=== PATIENT | born 1980 | race Caucasian/White ===

== ENCOUNTER 2025-03-16 10:15 | Outpatient (CLI) | payer MEDICAID, SELFPAY ==
[2025-03-16 10:55] LABS: Hematocrit 43.6 % (36-47); Hemoglobin 14.40 g/dL (11.27-16.99); Mean Corpuscular HGB Conc 33.0 g/dL (30-55); Mean Corpuscular Hemoglobin 31.8 pg (27-33); Mean Corpuscular Volume 96.2 fl (85-98); Nucleated Red Blood Cells % 0 %; Platelet Count 330 10^3/cmm (157-399); Red Blood Count 4.53 10^6/uL (3.85-5.65); White Blood Count 7.11 10^3/uL (3.29-11.43)
[2025-03-16 11:25] LABS: Alanine Aminotransferase 10 U/L (0-33); Albumin Level 4.3 g/dL (3.5-5.2); Alkaline Phosphatase 91 U/L (35-105); Aspartate Amino Transferase 17 U/L (0-32); Blood Urea Nitrogen 8 mg/dL (6-20); Calcium 9.0 mg/dL (8.5-10.5); Carbon Dioxide 27 mmol/L (22-29); Chloride 102 mmol/L (98-107); Cholesterol 188 mg/dL (0-200); Globulin 3.1 g/dL (1.3-4.6); Glucose 86 mg/dL (65-115); HDL Cholesterol 38 mg/dL (60-100); Osmolality Calculated 288 mOsm/kg (285-295); Sodium 140 mmol/L (136-145); Total Protein 7.4 g/dL (6.6-8.7); Triglycerides 264 mg/dL (0-150)
[2025-03-16 11:26] LABS: Anion Gap 15.1 (5-19); Potassium 4.1 mmol/L (3.5-5.1)
[2025-03-16 11:39] LABS: HIV 1 & 2 Antigen Non-Reactive (Non-Reactiv); Hepatitis B Surface Antigen Non-Reactive (Nonreactive)
[2025-03-16 12:03] LABS: Free T4 Free Thyroxine 1.80 ng/dL (0.82-1.77); Thyroid Stimulating Hormone 0.03 uIU/mL (0.27-4.20)
== END 2025-03-16 10:16 | disposition home or self-care (01) ==
LOC: LAB 10:19
PROVIDERS: Internal Medicine; Visit Provider Nurse Practitioner Family
DX: E04.9 Nontoxic goiter, unspecified (principal); E03.9 Hypothyroidism, unspecified
CPT/HCPCS: 36415; 80048; 80061; 80076; 84439; 84443; 85025; 86480; 86704; 86706; 86803; 87340; 87806

== ENCOUNTER 2025-03-18 08:25 | Outpatient (CLI) | payer MEDICAID, SELFPAY ==
--- NOTE | 2025-03-18 08:30 | US_ITS ---
WS: [id number] ULTRASOUND THYROID TECHNIQUE: Ultrasound of the thyroid. CLINICAL INFORMATION: see below COMPARISON: None. FINDINGS: Thyroid: Enlarged dense heterogeneous nodular thyroid. No dominant thyroid nodules are present. Enlarged isthmus measuring 9 mm. Right thyroid lobe: 4.7 cm x 1.8 cm x 1.7 cm Left thyroid lobe: 4.4 cm x 1.5 cm x 1.8 cm. Isthmus: 9 mm. Cervical lymphadenopathy: None. US/US thyroid [id number] IMPRESSION: 1. Enlarged dense heterogeneous nodular thyroid. Recommend correlation with th yroid function studies. Findings likely due to goiter 2. No dominant thyroid nodules are present. 3. Enlarged isthmus measuring 9 mm.
== END 2025-03-18 08:26 | disposition home or self-care (01) ==
LOC: RAD 08:26
PROVIDERS: Visit Provider Internal Medicine
DX: E04.9 Nontoxic goiter, unspecified (principal); E03.9 Hypothyroidism, unspecified
CPT/HCPCS: 76536